=== PATIENT | female | born 1940 | race Caucasian/White ===

== ENCOUNTER 2016-08-11 16:14 | Emergency (ER) | payer MEDICARE ==
--- NOTE | ~2016-08-11 | EKG ---
PATIENT: EDWARDO CHRISTINA UNIT #: [id number] Ventricular Rate: 106 BPM Atrial Rate: 106 BPM P-R Interval: 158 ms QRS Duration: 64 ms Q-T Interval: 340 ms QTC Calculation(Bezet): 451 ms P [place]: 73 degrees Calculated R [place]: 59 degrees Calculated T [place]: 73 degrees Diagnosis Line: Sinus tachycardia with Possible Premature atrial Diagnosis Line: complexes with Aberrant conduction and Premature Diagnosis Line: ventricular complexes or Fusion complexes Diagnosis Line: Poor R wave progression questionable lead position Diagnosis Line: or body habitus Abnormal ECG Diagnosis Line: No previous ECGs available Diagnosis Line: Confirmed by ANASTASIA SCHROEDER MD ([id number]) on 08/19/2016 Diagnosis Line: 11:52:34 AM INTERPRETING MD: ELDA FERNÁNDEZ
--- NOTE | ~2016-08-11 | CR72 ---
[facility] A Service of [facility] RADIOLOGY TEXT RESULTS PATIENT: DEWARDO CHRISTINA LOCATION: SED : 38 UNIT #: [id number] AGE: [address]: Dwayne López MD SEX: F ORDER DR: [id number] [address] [id number] E MR#: [id number] Acc #: [id number] NAME: EDWARDO CHRISTINA : 1940 SEX: F STUDY DATE/TIME: 08/11/2016 16:52 UNIT: SED ROOM: STUDY DESCRIPTION: CR Chest Single View Portable Attending Physician: Dwayne López M.D. Ordering Physician: Dwayne López M.D. Primary Care Physician: No Primary Care Physician MEDICAL IMAGING REPORT This report is preliminary unless electronic signature is present. EXAM AP portable chest, 08/11/2016 HISTORY Left-sided chest pain for 2 hours, subsequently resolved. Symptoms were present today. Diagnosed with pneumonia recently. COMPARISON PA and lateral chest radiograph, 01/29/2016. FINDINGS There is airspace disease within the medial right base, partially obscuring the cardiac margin, conceivably in the right middle lobe. Ill-defined reticulonodular densities are scattered throughout both lungs and appear new since the prior study. Benign calcified granuloma in the left mid lung unchanged. Stable heart size. No pleural effusion or pneumothorax is seen. IMPRESSION 1. Airspace disease in the medial right base potentially in the right middle lobe, with more ill-defined reticulonodular infiltrates throughout both lungs. Findings worrisome for multifocal pneumonia. Short-term chest radiograph followup to document improvement or resolution is recommended. 2. Background emphysematous changes. Dictated by... Felipa García M.D. THIS IS AN ELECTRONICALLY VERIFIED REPORT Felipa García M.D. at 08/12/2016 7:34 AM [facility] A Service of [facility] RADIOLOGY TEXT RESULTS PATIENT: EDWARDO CHRISTINA LOCATION: SED : 38 UNIT #: [id number] AGE: [address]: Dwayne López MD SEX: F ORDER DR: NARCISO/aaron TD: 08/11/2016 18:02 JOB #: [id number] MEDICAL IMAGING REPORT Page 1 of 1
[~2016-08-11 16:14] MED LIST: ADULT WAL-100 MG/5 M; ALBUTEROL2.5 MG/3 M; COREG6.25 M1; LEVAQUIN PO; PREVACID PO; SENNA8.6 M1 PO; ZOFRAN PO
[2016-08-11 16:34] LABS: BASOPHIL% 0.2 % (0-2.5); EOSINOPHIL% 0.1 % (0.0-7.0); HEMATOCRIT 36.6 % (35.0-45.0); HEMOGLOBIN 11.5 gm/dL (12.0-16.0); LYMPHOCYTE# 0.5 X10e3 (1.0-3.5); LYMPHOCYTE% 3.2 % (17.0-45.0); MEAN CELL VOLUME 89.6 FL (83-96); MEAN CORPUSCULAR HEMOGLOBIN 28.2 PG (28-34); MEAN CORPUSCULAR HGB CONC 31.5 g/dL (30-36); MEAN PLATELET VOLUME 11.2 FL (6.5-11.5); MONOCYTE# 1.5 X10e3 (0-1.0); MONOCYTE% 10.6 % (3.0-12.0); NEUTROPHIL# 12.2 X10e3 (1.5-7.1); NEUTROPHIL% 85.9 % (40-75); PLATELET COUNT 187 X10e3 (140-420); RED BLOOD COUNT 4.08 X10e (3.90-5.30); WHITE BLOOD COUNT 14.2 X10e3 (4.0-10.5)
[2016-08-11 16:42] LABS: DIFF IND NO
[2016-08-11 16:52] LABS: POC - CKMB <1.0 ng/mL (0.0-7.9); POC - TROPONIN <0.05 ng/mL (<=0.05)
[2016-08-11 17:32] LABS: ALBUMIN SERUM 3.2 g/dL (3.5-5.0); BILIRUBIN, DIRECT 0.1 mg/dL (0.0-0.2); BILIRUBIN,INDIRECT 0.2 mg/dL (0.0-0.9); BILIRUBIN,TOTAL 0.3 mg/dL (0.2-2.0); CALCIUM SERUM 9.4 mg/dL (8.4-10.2); CREATININE SERUM 0.6 mg/dL (0.6-1.4); GLOM FILT RATE Estimated 87.3 mL/min (>60); PROTEIN TOTAL SERUM 8.1 g/dL (6.0-8.3)
[2016-08-11 18:36] LABS: POC - CKMB <1.0 ng/mL (0.0-7.9)
[2016-08-11 18:37] LABS: POC - TROPONIN <0.05 ng/mL (<=0.05)
== END 2016-08-11 19:15 | disposition home or self-care (01) ==
LOC: SED 16:14
PROVIDERS: Emergency Medicine
DX: R07.9 Chest pain, unspecified (principal); J18.9 Pneumonia, unspecified organism; E87.1 Hypo-osmolality and hyponatremia
CPT/HCPCS: 36415; 71010; 80048; 80076; 82553; 84484; 85025; 93005; 99284